=== PATIENT | male | born 1955 | race Caucasian/White ===

== ENCOUNTER 2018-08-21 11:22 | Observation (INO) | payer MEDICARE, OTHER ==
[~2018-08-21] VITALS: Ht 185.4 cm; Wt 75.8 kg
[2018-08-21] MEDS ORDERED: OMEP-110 PO (12:08)
[2018-08-21] MEDS ORDERED: OXYC10TA6 PO (12:08)
[2018-08-21] MEDS ORDERED: GABA300C10 PO (12:08)
[2018-08-21 12:19] LABS: BASOPHILS # (AUTO) 0.02 x10^3/uL (0-0.1); BASOPHILS % (AUTO) 0 % (0-1); EOSINOPHILS # (AUTO) 0.36 x10^3/uL (0-0.4); EOSINOPHILS % (AUTO) 4 % (1-7); LYMPHOCYTES # (AUTO) 0.53 x10^3/uL (1-3.4); LYMPHOCYTES % (AUTO) 5 % (22-44); MD NO; MEAN CORPUSCULAR HEMOGLOBIN 28.8 pg (27.5-34.5); MEAN CORPUSCULAR HGB CONC 34.1 g/dL (33.2-36.2); MEAN CORPUSCULAR VOLUME 84.3 fL (81-97); MONOCYTES # (AUTO) 0.51 x10^3/uL (0.2-0.8); MONOCYTES % (AUTO) 5 % (2-9); NEUTROPHILS # (AUTO) 8.46 x10^3/uL (1.8-6.8); NEUTROPHILS % (AUTO) 86 % (42-75); PLATELET COUNT 440 x10^3/uL (130-400); RED BLOOD COUNT 4.07 x10^6/uL (4.38-5.82); RED CELL DISTRIBUTION WIDTH 13.6 % (9.4-14.8)
[2018-08-21 12:28] LABS: ANION GAP 7 mmol/L (5-15); CALCIUM 8.5 mg/dL (8.5-10.1); CHLORIDE 103 mmol/L (98-107); CREATININE 0.96 mg/dL (0.7-1.3)
[2018-08-21 13:32] LABS: ALBUMIN 2.6 g/dL (3.4-5.0)
[2018-08-21 13:36] LABS: BILIRUBIN, DIRECT 0.1 mg/dL (0.1-0.2); BILIRUBIN,INDIRECT 0.2 mg/dL (0.0-2.0); BILIRUBIN,TOTAL 0.3 mg/dL (0.2-1.0); TOTAL PROTEIN 7.1 g/dL (6.4-8.2)
[2018-08-21] MEDS ORDERED: BACLOFEN 10 MG TABLET PO PRN (15:30)
[2018-08-21] MEDS ORDERED: BISACODYL 10 MG SUPP PR PRN (15:30)
[2018-08-21] MEDS ORDERED: GABAPENTIN 300 MG CAPSULE PO PRN (15:30)
[2018-08-21] MEDS ORDERED: ACETAMINOPHEN 325 MG TABLET PO PRN (15:30)
[2018-08-21] MEDS ORDERED: POLYETHYLENE GLYCOL 17 GM PACKET PO PRN (15:30)
[2018-08-21] MEDS ORDERED: hydrALAzine 20 MG/ML, 1ML IVPush PRN (15:30)
[2018-08-21] MEDS: HEPARIN 5,000 UNITS/ML, 1ML SQ SCH ×2 (15:30→22:16)
[2018-08-21] MEDS ORDERED: morphine SULFATE 10 MG/ML, 1ML IVPush PRN (15:30)
[2018-08-21 16:00] VITALS: BP 119/72
[2018-08-21] MEDS: OXYCODONE HCL 10 MG PO SCH ×2 (16:00→20:52)
[2018-08-21] MEDS: GABAPENTIN 300 MG CAPSULE PO SCH ×2 (16:57→22:16)
[2018-08-21] MEDS: SODIUM CHLORIDE 0.9% 1,000 ML IV SCH (18:33)
[2018-08-21 20:42] VITALS: BP 108/71
[2018-08-22 02:30] VITALS: BP 103/68
[2018-08-22] MEDS: DOCUSATE 100 MG CAPSULE PO PRN (03:27)
[2018-08-22 05:39] LABS: ANION GAP 6 mmol/L (5-15); BASOPHILS # (AUTO) 0.04 x10^3/uL (0-0.1); BASOPHILS % (AUTO) 1 % (0-1); CALCIUM 8.2 mg/dL (8.5-10.1); CHLORIDE 109 mmol/L (98-107); EOSINOPHILS # (AUTO) 0.37 x10^3/uL (0-0.4); EOSINOPHILS % (AUTO) 5 % (1-7); LYMPHOCYTES # (AUTO) 0.54 x10^3/uL (1-3.4); LYMPHOCYTES % (AUTO) 7 % (22-44); MD NO; MEAN CORPUSCULAR HEMOGLOBIN 28.2 pg (27.5-34.5); MEAN CORPUSCULAR VOLUME 85.5 fL (81-97); MEAN PLATELET VOLUME 8.2 fL (7.4-10.4); MONOCYTES % (AUTO) 9 % (2-9); NEUTROPHILS # (AUTO) 5.82 x10^3/uL (1.8-6.8); NEUTROPHILS % (AUTO) 78 % (42-75); PLATELET COUNT 380 x10^3/uL (130-400); RED BLOOD COUNT 3.61 x10^6/uL (4.38-5.82); RED CELL DISTRIBUTION WIDTH 13.5 % (9.4-14.8)
[2018-08-22] MEDS: OXYCODONE HCL 10 MG PO SCH ×4 (06:00→22:37)
[2018-08-22] MEDS: SODIUM CHLORIDE 0.9% 1,000 ML IV SCH (06:14)
[2018-08-22] MEDS: HEPARIN 5,000 UNITS/ML, 1ML SQ SCH ×3 (06:14→22:42)
[2018-08-22] MEDS: GABAPENTIN 300 MG CAPSULE PO SCH ×4 (06:15→22:37)
[2018-08-22 07:45] VITALS: BP 101/63
[2018-08-22] MEDS: OMEPRAZOLE 20 MG CAPSULE.DR PO SCH (09:08)
[2018-08-22 12:04] VITALS: BP 104/62
[2018-08-22 19:50] VITALS: BP 98/60
[2018-08-23 03:40] VITALS: BP 102/63
[2018-08-23] MEDS: GABAPENTIN 300 MG CAPSULE PO SCH ×3 (05:43→15:42)
[2018-08-23] MEDS: DOCUSATE 100 MG CAPSULE PO PRN (05:50)
[2018-08-23] MEDS: HEPARIN 5,000 UNITS/ML, 1ML SQ SCH ×2 (06:09→14:00)
[2018-08-23] MEDS: OXYCODONE HCL 10 MG PO SCH ×3 (06:09→15:40)
[2018-08-23 06:49] VITALS: BP 113/74
[2018-08-23] MEDS: OMEPRAZOLE 20 MG CAPSULE.DR PO SCH (09:58)
[2018-08-23 12:47] VITALS: BP 107/68
[2018-08-23] MEDS ORDERED: GABA300C10 PO (14:51)
[2018-08-23] MEDS ORDERED: CELE200C PO (14:51)
[2018-08-23] MEDS ORDERED: BACL-19 PO (14:51)
== END 2018-08-23 17:30 | disposition home or self-care (01) ==
LOC: ED 15:00 → 3NW 15:30 → EDIP 15:35 → INTOOBSV 15:35 → UNDOADMOB 15:35 → 3NW 15:40 → EDIP 15:40
PROVIDERS: ADMIT Hospitalist; ATTEND Hospitalist
DX: M48.54XA Collapsed vertebra, not elsewhere classified, thoracic region, initial encounter for fracture (principal); C34.90 Malignant neoplasm of unspecified part of unspecified bronchus or lung; C79.51 Secondary malignant neoplasm of bone; D63.8 Anemia in other chronic diseases classified elsewhere; E46 Unspecified protein-calorie malnutrition; F10.21 Alcohol dependence, in remission; F11.23 Opioid dependence with withdrawal; F12.90 Cannabis use, unspecified, uncomplicated; K21.9 Gastro-esophageal reflux disease without esophagitis; G89.3 Neoplasm related pain (acute) (chronic); K59.00 Constipation, unspecified; Z87.891 Personal history of nicotine dependence
CPT/HCPCS: 36415; 80048; 80076; 84443; 85025; 96372; 96374; 99285; G0378; J1644; J2270; J7030